=== PATIENT | female | born 1970 | race Caucasian/White ===

== ENCOUNTER → 2016-09-13 | Outpatient (CLI) | payer OTHER ==
[~2016-09-13] MED LIST: ALPR-475 PO; ALPR1TAB PO; AMIT25TA PO; BACL-19 PO; BACLOFEN PO; BUPR1PAT TP; BUPR1PAT10 TD; DIAZ5TAB PO; DIAZ5TAB4 PO; DICL100G8 TP; DULO60CA7 PO; GABA600T2 PO; HYDR-3144 PO; HYDR-3307 PO; HYDR2TAB29 PO; MULT-658 PO; OXYC-223 PO; OXYC20TA42 PO; OXYC5CAP4 PO; SOMATROPIN PO; TRAZ50TA18 PO; [UNRECOGNIZED DRUG - OTHER]; [UNRECOGNIZED DRUG - OTHER] PO; [UNRECOGNIZED DRUG - REMARK] PO; oxycodone PO
== END | disposition home or self-care (01) ==
LOC: CFH 12:34
PROVIDERS: ATTEND Nurse Practitioner Gerontology
DX: M43.22 Fusion of spine, cervical region (principal); M47.892 Other spondylosis, cervical region; M50.323 Other cervical disc degeneration at C6-C7 level; M25.512 Pain in left shoulder; M25.511 Pain in right shoulder; Z98.890 Other specified postprocedural states
CPT/HCPCS: 72050; 72141

== ENCOUNTER 2017-10-25 13:06 | Emergency (ER) | payer OTHER ==
[~2017-10-25] VITALS: Ht 175.3 cm; Wt 65.6 kg
[~2017-10-25 13:06] MED LIST changes: -BUPR1PAT TP; +BUPR1PAT7 TP; +DICL100G19 TP; -DICL100G8 TP; -HYDR-3144 PO; +HYDR-3245 PO; -OXYC-223 PO; +OXYC-306 PO; +OXYC5CAP2 PO; -OXYC5CAP4 PO; +TRAZ-136 PO; -TRAZ50TA18 PO
[2017-10-25 14:35] LABS: BASOPHILS # (AUTO) 0.03 x10^3/uL (0-0.1); BASOPHILS % (AUTO) 0 % (0-1); EOSINOPHILS # (AUTO) 0.22 x10^3/uL (0-0.4); EOSINOPHILS % (AUTO) 2 % (1-7); LYMPHOCYTES # (AUTO) 2.77 x10^3/uL (1-3.4); LYMPHOCYTES % (AUTO) 27 % (22-44); MD NO; MEAN CORPUSCULAR VOLUME 87.9 fL (80-100); MEAN PLATELET VOLUME 7.2 fL (7.4-10.4); MONOCYTES # (AUTO) 1.11 x10^3/uL (0.2-0.8); MONOCYTES % (AUTO) 11 % (2-9); NEUTROPHILS # (AUTO) 6.03 x10^3/uL (1.8-6.8); NEUTROPHILS % (AUTO) 59 % (42-75); PLATELET COUNT 320 x10^3/uL (130-400); RED BLOOD COUNT 4.24 x10^6/uL (3.82-5.3); RED CELL DISTRIBUTION WIDTH 13.7 % (9.6-15.2)
[2017-10-25 14:47] LABS: ALBUMIN 3.5 g/dL (3.4-5.0); ANION GAP 7 mmol/L (5-15); CHLORIDE 107 mmol/L (98-107)
[2017-10-25 14:53] LABS: ALANINE AMINOTRANSFERASE 34 U/L (12-78); ALKALINE PHOSPHATASE 86 U/L (45-117); BILIRUBIN,TOTAL 0.5 mg/dL (0.2-1.0); CREATININE 0.84 mg/dL (0.55-1.02); TOTAL PROTEIN 6.7 g/dL (6.4-8.2); TROPONIN I < 0.015 ng/mL (0.000-0.045)
[2017-10-25] MEDS ORDERED: OXYcodone/APAP 10/325MG TABLET ONE (15:54)
[2017-10-25] MEDS ORDERED: OXYcodone/APAP 10/325MG TABLET PO ONE (16:00)
[2017-10-25 16:03] VITALS: BP 113/76
== END 2017-10-25 16:06 | disposition home or self-care (01) ==
LOC: ED 13:59
DX: S22.41XA Multiple fractures of ribs, right side, initial encounter for closed fracture (principal); S16.1XXA Strain of muscle, fascia and tendon at neck level, initial encounter; S09.90XA Unspecified injury of head, initial encounter; R42 Dizziness and giddiness; I10 Essential (primary) hypertension; E11.9 Type 2 diabetes mellitus without complications; G89.29 Other chronic pain; F17.200 Nicotine dependence, unspecified, uncomplicated; W01.0XXA Fall on same level from slipping, tripping and stumbling without subsequent striking against object, initial encounter; Y93.89 Activity, other specified; Y99.8 Other external cause status; Y92.009 Unspecified place in unspecified non-institutional (private) residence as the place of occurrence of the external cause
CPT/HCPCS: 36415; 70450; 72125; 80053; 84484; 85025; 93005; 99285

== ENCOUNTER → 2017-11-09 | Outpatient (CLI) | payer OTHER ==
[2017-11-09 15:38] LABS: BASOPHILS # (AUTO) 0.05 x10^3/uL (0-0.1); BASOPHILS % (AUTO) 1 % (0-1); EOSINOPHILS # (AUTO) 0.32 x10^3/uL (0-0.4); EOSINOPHILS % (AUTO) 4 % (1-7); LYMPHOCYTES # (AUTO) 2.58 x10^3/uL (1-3.4); LYMPHOCYTES % (AUTO) 29 % (22-44); MD NO; MEAN CORPUSCULAR HEMOGLOBIN 29.3 pg (27.0-34.8); MEAN CORPUSCULAR HGB CONC 32.9 g/dL (32.4-35.8); MEAN CORPUSCULAR VOLUME 89.1 fL (80-100); MEAN PLATELET VOLUME 7.9 fL (7.4-10.4); MONOCYTES # (AUTO) 0.62 x10^3/uL (0.2-0.8); MONOCYTES % (AUTO) 7 % (2-9); NEUTROPHILS # (AUTO) 5.32 x10^3/uL (1.8-6.8); NEUTROPHILS % (AUTO) 60 % (42-75); PLATELET COUNT 536 x10^3/uL (130-400); RED BLOOD COUNT 4.54 x10^6/uL (3.82-5.3)
[2017-11-09 15:51] LABS: ALBUMIN 3.7 g/dL (3.4-5.0); ANION GAP 6 mmol/L (5-15); CALCIUM 8.8 mg/dL (8.5-10.1); CHLORIDE 107 mmol/L (98-107)
[2017-11-09 16:00] LABS: ALANINE AMINOTRANSFERASE 21 U/L (12-78); ALKALINE PHOSPHATASE 100 U/L (45-117); BILIRUBIN,TOTAL 0.4 mg/dL (0.2-1.0); CHOL/HDL RATIO 3.8; CHOLESTEROL, TOTAL 192 mg/dL (140-239); CREATININE 0.74 mg/dL (0.55-1.02); FREE T4 (FREE THYROXINE) 0.91 ng/dL (0.76-1.46); HDL CHOL % 27 % (28-40); HDL CHOLESTEROL (DIRECT) 51 mg/dL (40-60); LDL CHOLESTEROL,CALCULATED 125 mg/dL (54-169); LDL/HDL RATIO 2.5 (0.5-3.0); THYROID STIMULATING HORMONE 0.786 mIU/L (0.358-3.740); TOTAL PROTEIN 7.1 g/dL (6.4-8.2); TRIGLYCERIDES 79 mg/dL (50-200); VLDL CHOLESTEROL 16 mg/dL (0-25)
== END | disposition home or self-care (01) ==
LOC: CFH 11:45
PROVIDERS: ATTEND Nurse Practitioner Family
DX: Z00.01 Encounter for general adult medical examination with abnormal findings (principal); R61 Generalized hyperhidrosis; F32.9 Major depressive disorder, single episode, unspecified; F17.210 Nicotine dependence, cigarettes, uncomplicated
CPT/HCPCS: 36415; 80053; 80061; 82306; 84439; 84443; 85025

== ENCOUNTER → 2019-01-01 | Outpatient (CLI) | payer OTHER ==
[~2019-01-01] MED LIST changes: -ALPR-475 PO; +ALPR0.5T7 PO; -GABA600T2 PO; +GABA600T7 PO; -HYDR-3307 PO; +HYDR-36 PO; -TRAZ-136 PO; +TRAZ50TA66 PO
== END | disposition home or self-care (01) ==
LOC: CFH 10:31
PROVIDERS: ATTEND Nurse Practitioner Family
DX: M43.22 Fusion of spine, cervical region (principal); M47.812 Spondylosis without myelopathy or radiculopathy, cervical region; F17.200 Nicotine dependence, unspecified, uncomplicated
CPT/HCPCS: 72040

== ENCOUNTER → 2019-01-19 | Outpatient (CLI) | payer OTHER | END | disposition home or self-care (01) | LOC: CFH 12:22 | PROVIDERS: ATTEND Neurological Surgery | DX: S12.2 Fracture of third cervical vertebra (principal); X58.XXXD Exposure to other specified factors, subsequent encounter; Z98.890 Other specified postprocedural states | CPT/HCPCS: 72125 ==

== ENCOUNTER 2019-05-16 11:20 | Outpatient (CLI) | payer OTHER | END 2019-05-16 23:59 | disposition home or self-care (01) | LOC: RAD 11:20 | PROVIDERS: ATTEND Registered Nurse Registered Nurse First Assistant | DX: M50.31 Other cervical disc degeneration, high cervical region (principal) | CPT/HCPCS: 72050 ==

== ENCOUNTER 2020-08-28 12:16 | Emergency (ER) | payer OTHER ==
[~2020-08-28] VITALS: Ht 170.2 cm; Wt 49.2 kg
[~2020-08-28 12:16] MED LIST changes: -HYDR-3245 PO; +HYDR-3248 PO; -HYDR-36 PO; +HYDR1TAB53 PO; -OXYC-306 PO; +OXYC1TAB17 PO
[2020-08-28] MEDS ORDERED: MAALOX/HYOSCYAMINE/LIDOCAINE 45 ML BTL ONE (12:46)
--- NOTE | 2020-08-28 12:54 | NUR ---
PT MED NOTED AND THEN TO RADIOLOGY WITH TECH TRANSPORT.
[2020-08-28] MEDS ORDERED: MAALOX/HYOSCYAMINE/LIDOCAINE 45 ML BTL PO ONE (13:00)
--- NOTE | 2020-08-28 13:09 | NUR ---
US TECH AT BEDSIDE. CALL LIGHT W/I REACH. PT RPTS NO RELIEF OF PAIN AFTER GI COCTAIL.
[2020-08-28 13:17] LABS: BASOPHILS % (AUTO) 0 % (0-1); EOSINOPHILS % (AUTO) 1 % (1-7); LYMPHOCYTES % (AUTO) 33 % (22-44); MEAN CORPUSCULAR HEMOGLOBIN 26.7 pg (27.0-34.8); MEAN CORPUSCULAR HGB CONC 32.6 g/dL (32.4-35.8); MEAN PLATELET VOLUME 7.5 fL (7.4-10.4); MONOCYTES % (AUTO) 9 % (2-9); NEUTROPHILS % (AUTO) 58 % (42-75); PLATELET COUNT 387 x10^3/uL (130-400); RED BLOOD COUNT 5.07 x10^6/uL (3.82-5.3); RED CELL DISTRIBUTION WIDTH 16.4 % (9.6-15.2)
[2020-08-28 13:27] LABS: ALBUMIN 3.9 g/dL (3.4-5.0); ANION GAP 6 mmol/L (5-15); CALCIUM 9.1 mg/dL (8.5-10.1); CHLORIDE 105 mmol/L (98-107)
[2020-08-28 13:31] LABS: ALANINE AMINOTRANSFERASE 48 U/L (12-78); ALKALINE PHOSPHATASE 171 U/L (45-117); BILIRUBIN,TOTAL 0.6 mg/dL (0.2-1.0); CREATININE 0.88 mg/dL (0.55-1.02); TOTAL PROTEIN 7.5 g/dL (6.4-8.2)
--- NOTE | 2020-08-28 14:27 | NUR ---
ALL TESTS RESULTED, CHART UP FOR RECHECK. PT AWARE.
[2020-08-28 14:30] VITALS: BP 109/69
--- NOTE | 2020-08-28 14:50 | NUR ---
Patient/Caregiver given discharge instructions and they have confirmed that they understand the instructions. Patient ambulatory with steady gait. NAD, all questions answered appropriately, denies additional needs at this time. No personal belongings left in room after discharge.
== END 2020-08-28 14:51 | disposition home or self-care (01) ==
LOC: ED 13:40
DX: K59.00 Constipation, unspecified (principal); R10.13 Epigastric pain; E11.9 Type 2 diabetes mellitus without complications; I10 Essential (primary) hypertension
CPT/HCPCS: 36415; 74021; 76700; 80053; 83690; 85025; 99285

== ENCOUNTER 2020-10-22 13:03 | Outpatient (CLI) | payer OTHER ==
[~2020-10-22 13:03] MED LIST changes: +OXYC1TAB16 PO; -OXYC1TAB17 PO
[2020-10-22 13:46] LABS: INTERNATIONAL NORMALIZED RATIO 1.01 (0.93-1.1); PROTHROMBIN TIME 10.8 Seconds (9.6-11.5)
[2020-10-22 13:48] LABS: CHLORIDE 106 mmol/L (98-107)
[2020-10-22 14:04] LABS: % IRON SATURATION 6 % (20-55); ALANINE AMINOTRANSFERASE 142 U/L (12-78); ALBUMIN 3.5 g/dL (3.4-5.0); ALKALINE PHOSPHATASE 265 U/L (45-117); ANION GAP 6 mmol/L (5-15); BILIRUBIN,TOTAL 0.3 mg/dL (0.2-1.0); CALCIUM 8.7 mg/dL (8.5-10.1); CREATININE 0.79 mg/dL (0.55-1.02); IRON LEVEL 30 mcg/dL (50-170); TOTAL IRON BINDING CAPACITY 535 mcg/dL (250-450); TOTAL PROTEIN 6.9 g/dL (6.4-8.2)
== END 2020-10-22 23:59 | disposition home or self-care (01) ==
LOC: LAB 13:03
PROVIDERS: ATTEND Nurse Practitioner Family
DX: R74.01 Elevation of levels of liver transaminase levels (principal)
CPT/HCPCS: 36415; 80053; 82525; 82728; 83540; 83550; 85610; 86704; 86708; 86803